=== PATIENT | male | born 1965 | race Caucasian/White ===

== ENCOUNTER 2020-07-11 12:39 | Outpatient (REF) | payer OTHER, SELFPAY ==
[2020-07-11 14:15] LABS: INTERNATIONAL NORM RATIO 2.6 (0.9-1.1); Prothrombin Time 30.7 SEC (10.8-13.0)
[2020-07-11 14:23] LABS: Alanine Aminotransferase 28 U/L (0-40); Albumin Level 4.3 g/dL (3.5-5.0); Alkaline Phosphatase 168 U/L (39-117); Anion Gap 16 (12-20); Aspartate Amino Transferase 38 U/L (5-37); Bilirubin Total 1.3 mg/dL (0.0-1.0); Blood Urea Nitrogen 65 mg/dL (9-16); Calcium 9.3 mg/dL (8.4-10.2); Carbon Dioxide 26 mmol/L (22-29); Chloride 94 mmol/L (96-108); Estimated Glomerular Filt Rate 38; Glucose Random 315 mg/dL (60-115); Potassium 3.9 mmol/l (3.3-5.1); Sodium 132 mmol/L (135-145); Total Protein 7.4 g/dL (6.5-8.0)
== END 2020-07-11 12:40 | disposition home or self-care (01) ==
LOC: HO.HMGCLDS 12:39
PROVIDERS: Absent Provider Internal Medicine Advanced Heart Failure and Transplant Cardiology; PCP Family Medicine; Visit Provider Internal Medicine
DX: Z95.811 Presence of heart assist device (principal); Z79.01 Long term (current) use of anticoagulants
CPT/HCPCS: 36415; 80053; 85610

== ENCOUNTER 2020-07-21 10:08 | Outpatient (REF) | payer OTHER, SELFPAY ==
[2020-07-21 11:20] LABS: INTERNATIONAL NORM RATIO 2.7 (0.9-1.1); Prothrombin Time 31.9 SEC (10.8-13.0)
[2020-07-21 11:42] LABS: Alanine Aminotransferase 28 U/L (0-40); Albumin Level 4.1 g/dL (3.5-5.0); Alkaline Phosphatase 116 U/L (39-117); Anion Gap 16 (12-20); Aspartate Amino Transferase 43 U/L (5-37); Bilirubin Total 1.3 mg/dL (0.0-1.0); Blood Urea Nitrogen 75 mg/dL (9-16); Calcium 9.1 mg/dL (8.4-10.2); Carbon Dioxide 27 mmol/L (22-29); Chloride 92 mmol/L (96-108); Estimated Glomerular Filt Rate 32; Glucose Random 229 mg/dL (60-115); Potassium 3.9 mmol/l (3.3-5.1); Sodium 131 mmol/L (135-145); Total Protein 7.2 g/dL (6.5-8.0)
== END 2020-07-21 10:09 | disposition home or self-care (01) ==
LOC: HO.HMGCLDS 10:08
PROVIDERS: Absent Provider Internal Medicine; PCP Family Medicine; Visit Provider Internal Medicine Advanced Heart Failure and Transplant Cardiology
DX: Z95.811 Presence of heart assist device (principal)
CPT/HCPCS: 36415; 80053; 85610

== ENCOUNTER 2020-08-12 07:36 | Outpatient (REF) | payer OTHER, SELFPAY ==
[2020-08-12 11:28] LABS: INTERNATIONAL NORM RATIO 2.7 (0.9-1.1); Prothrombin Time 32.9 SEC (10.8-13.0)
[2020-08-12 11:47] LABS: Alanine Aminotransferase 35 U/L (0-40); Albumin Level 4.1 g/dL (3.5-5.0); Alkaline Phosphatase 129 U/L (39-117); Anion Gap 15 (12-20); Aspartate Amino Transferase 47 U/L (5-37); Bilirubin Total 0.7 mg/dL (0.0-1.0); Blood Urea Nitrogen 76 mg/dL (9-16); Carbon Dioxide 28 mmol/L (22-29); Chloride 95 mmol/L (96-108); Estimated Glomerular Filt Rate 37; Glucose Random 239 mg/dL (60-115); Potassium 3.9 mmol/l (3.3-5.1); Sodium 134 mmol/L (135-145); Total Protein 7.3 g/dL (6.5-8.0)
[2020-08-13 17:51] LABS: NT-proBNP 3710 pg/mL
== END 2020-08-12 07:37 | disposition home or self-care (01) ==
LOC: HO.HMGCLR 07:36
PROVIDERS: Absent Provider Internal Medicine Advanced Heart Failure and Transplant Cardiology; PCP Family Medicine; Visit Provider Internal Medicine
DX: I50.9 Heart failure, unspecified (principal); Z95.811 Presence of heart assist device; Z79.01 Long term (current) use of anticoagulants
CPT/HCPCS: 36415; 80053; 83880; 85610

== ENCOUNTER 2020-08-18 12:25 | Outpatient (REF) | payer OTHER, SELFPAY ==
[2020-08-18 13:59] LABS: MANUAL DIFF FLAG NO
[2020-08-18 14:04] LABS: Basophils Absolute Auto 0.1 X10*3/uL (0.0-0.2); Basophils Percent Auto 0.8 % (0-2); Eosinophils Absolute Auto 0.4 X10*3/uL (0.0-0.4); Eosinophils Percent Auto 3.8 % (0-4); Hematocrit 37.2 % (42-52); Hemoglobin 12.2 g/dl (14.0-18.0); Imm Gran Abs Auto 0.09 X10*3/uL (0.00-0.03); Lymphocytes Absolute Auto 1.2 X10*3/uL (1.2-4.9); Lymphocytes Percent Auto 13.2 % (20-40); Mean Corpuscular HGB Conc 32.8 g/dl (31.0-36.0); Mean Corpuscular Hemoglobin 30.6 pg (27.0-33.0); Mean Corpuscular Volume 93.2 fL (80-98); Mean Platelet Volume 11.7 fL (9.4-12.4); Monocytes Absolute Auto 0.8 X10*3/uL (0.1-1.2); Monocytes Percent Auto 8.3 % (2-11); Neutrophils Absolute Auto 6.7 X10*3/uL (2.0-8.3); Neutrophils Percent Auto 72.9 % (45-73); Platelet Count 171 X10*3/uL (160-400); Red Blood Count 3.99 X10*6/uL (4.60-5.80); White Blood Count 9.2 X10*3/uL (4.8-10.8)
[2020-08-18 14:10] LABS: INTERNATIONAL NORM RATIO 3.2 (0.9-1.1); Prothrombin Time 38.9 SEC (10.8-13.0)
[2020-08-18 14:26] LABS: Alanine Aminotransferase 27 U/L (0-40); Alkaline Phosphatase 126 U/L (39-117); Anion Gap 15 (12-20); Aspartate Amino Transferase 34 U/L (5-37); Bilirubin Total 0.7 mg/dL (0.0-1.0); Blood Urea Nitrogen 63 mg/dL (9-16); C Reactive Protein 0.95 mg/dL (< or = 0.50); Calcium 8.7 mg/dL (8.4-10.2); Carbon Dioxide 25 mmol/L (22-29); Chloride 94 mmol/L (96-108); Estimated Glomerular Filt Rate 36; Glucose Random 224 mg/dL (60-115); Potassium 4.5 mmol/l (3.3-5.1); Sodium 129 mmol/L (135-145); Total Protein 6.9 g/dL (6.5-8.0); Uric Acid 6.4 mg/dL (3.4-7.0)
[2020-08-18 14:47] LABS: Erythrocyte Sedimentation Rate 10 MM/HR (0-15)
[2020-08-19 22:51] LABS: NT-proBNP 4880 pg/mL
== END 2020-08-18 12:26 | disposition home or self-care (01) ==
LOC: HO.HMGCLR 12:25
PROVIDERS: Internal Medicine Advanced Heart Failure and Transplant Cardiology; Absent Provider Student in an Organized Health Care Education/Training Program; PCP Family Medicine; Visit Provider Internal Medicine
DX: I50.9 Heart failure, unspecified (principal); Z95.811 Presence of heart assist device; Z79.01 Long term (current) use of anticoagulants; M10.00 Idiopathic gout, unspecified site
CPT/HCPCS: 36415; 80053; 83880; 84550; 85025; 85610; 85652; 86140

== ENCOUNTER → 2020-08-27 14:08 | Outpatient (BNVA) | payer OTHER, SELFPAY | PROVIDERS: PCP Family Medicine; Referring Provider Family Medicine; Visit Provider Internal Medicine Endocrinology, Diabetes & Metabolism | DX: E11.65 Type 2 diabetes mellitus with hyperglycemia (principal); E11.21 Type 2 diabetes mellitus with diabetic nephropathy; E11.42 Type 2 diabetes mellitus with diabetic polyneuropathy; E78.5 Hyperlipidemia, unspecified; I50.9 Heart failure, unspecified; E66.01 Morbid (severe) obesity due to excess calories; E04.2 Nontoxic multinodular goiter; Z87.891 Personal history of nicotine dependence | CPT/HCPCS: 82947; 99212 ==

== ENCOUNTER 2020-09-08 10:10 | Outpatient (REF) | payer OTHER, SELFPAY ==
[2020-09-08 11:35] LABS: INTERNATIONAL NORM RATIO 2.4 (0.9-1.1); Prothrombin Time 29.1 SEC (10.8-13.0)
[2020-09-08 11:57] LABS: Anion Gap 14 (12-20); B Type Natriuretic Peptide 956 pg/mL (<100); Blood Urea Nitrogen 61 mg/dL (9-16); Calcium 8.6 mg/dL (8.4-10.2); Carbon Dioxide 28 mmol/L (22-29); Chloride 100 mmol/L (96-108); Estimated Glomerular Filt Rate 44; Glucose Random 139 mg/dL (60-115); Potassium 4.5 mmol/l (3.3-5.1); Sodium 137 mmol/L (135-145)
== END 2020-09-08 10:11 | disposition home or self-care (01) ==
LOC: HO.HMGCLDS 10:10
PROVIDERS: PCP Family Medicine; Visit Provider Internal Medicine
DX: I50.22 Chronic systolic (congestive) heart failure (principal); Z95.811 Presence of heart assist device; Z79.01 Long term (current) use of anticoagulants
CPT/HCPCS: 36415; 80048; 83880; 85610

== ENCOUNTER 2020-09-15 11:31 | Outpatient (REF) | payer OTHER, SELFPAY ==
[2020-09-15 15:01] LABS: INTERNATIONAL NORM RATIO 1.9 (0.9-1.1); Prothrombin Time 22.9 SEC (10.8-13.0)
[2020-09-15 16:48] LABS: Alanine Aminotransferase 26 U/L (0-40); Albumin Level 4.3 g/dL (3.5-5.0); Alkaline Phosphatase 132 U/L (39-117); Anion Gap 17 (12-20); Aspartate Amino Transferase 42 U/L (5-37); Bilirubin Total 0.9 mg/dL (0.0-1.0); Blood Urea Nitrogen 80 mg/dL (9-16); Calcium 9.4 mg/dL (8.4-10.2); Carbon Dioxide 27 mmol/L (22-29); Chloride 91 mmol/L (96-108); Estimated Glomerular Filt Rate 35; Glucose Random 207 mg/dL (60-115); Sodium 131 mmol/L (135-145); Total Protein 7.6 g/dL (6.5-8.0)
[2020-09-17 22:52] LABS: TS Negative Control Passed; TS Panel A 0; TS Panel B 0; TS Positive Control Passed; TSpotTB Negative (SeeBelow)
== END 2020-09-15 11:32 | disposition home or self-care (01) ==
LOC: HO.HMGCLR 11:31
PROVIDERS: Internal Medicine; PCP Family Medicine; Visit Provider Physician Assistant Medical
DX: Z95.811 Presence of heart assist device (principal); Z79.01 Long term (current) use of anticoagulants; Z51.81 Encounter for therapeutic drug level monitoring
CPT/HCPCS: 36415; 80053; 85610; 86481

== ENCOUNTER 2020-09-22 13:08 | Outpatient (REF) | payer OTHER, SELFPAY ==
--- NOTE | 2020-09-22 13:16 | XR_ITS ---
EXAMINATION: XR PELVIS CLINICAL INFORMATION: M79.18 - Myalgia, other site COMPARISON: None TECHNIQUE: AP view pelvis and hips in 2 views. FINDINGS: There is no fracture, dislocation, destructive process. The SI joints and pubis show no diastases. There are degenerative changes lower lumbar spine with multilevel vertebral spurring and probable disc narrowing lumbosacral junction. The hips are unremarkable. XR/XR pelvis 1-2V IMPRESSION: 1. No fracture or destructive process. 2. Degenerative changes lumbosacral spine.
[2020-09-22 14:10] LABS: INTERNATIONAL NORM RATIO 2.5 (0.9-1.1); Prothrombin Time 30.5 SEC (10.8-13.0)
[2020-09-22 14:42] LABS: B Type Natriuretic Peptide 741 pg/mL (<100)
[2020-09-22 14:44] LABS: Anion Gap 16 (12-20); Blood Urea Nitrogen 78 mg/dL (9-16); Calcium 9.1 mg/dL (8.4-10.2); Carbon Dioxide 22 mmol/L (22-29); Chloride 97 mmol/L (96-108); Estimated Glomerular Filt Rate 37; Glucose Random 230 mg/dL (60-115); Potassium 4.7 mmol/l (3.3-5.1); Sodium 130 mmol/L (135-145)
== END 2020-09-22 13:09 | disposition home or self-care (01) ==
LOC: HO.HMGCLR 13:08
PROVIDERS: PCP Family Medicine; Visit Provider Internal Medicine
DX: Z00.00 Encounter for general adult medical examination without abnormal findings (principal); Z95.811 Presence of heart assist device; Z79.01 Long term (current) use of anticoagulants; M79.18 Myalgia, other site; I50.9 Heart failure, unspecified; E87.70 Fluid overload, unspecified; N17.9 Acute kidney failure, unspecified
CPT/HCPCS: 36415; 72170; 80048; 83880; 85610

== ENCOUNTER 2020-10-03 13:57 | Outpatient (REF) | payer OTHER, SELFPAY ==
[2020-10-03 16:37] LABS: Prothrombin Time 36.4 SEC (10.8-13.0)
== END 2020-10-03 13:58 | disposition home or self-care (01) ==
LOC: HO.HMGCLR 13:57
PROVIDERS: PCP Family Medicine; Visit Provider Internal Medicine
DX: Z95.811 Presence of heart assist device (principal); Z79.01 Long term (current) use of anticoagulants
CPT/HCPCS: 36415; 85610

== ENCOUNTER 2020-10-13 14:00 | Outpatient (RCR) | payer OTHER, SELFPAY ==
--- NOTE | 2020-10-03 14:00 | MHC.PT.EP ---
[facility] [place] Office [place] Office [place] Office [address] [phone] F: [phone] F: [phone] F: [phone] F: [phone] Physical Therapy Plan of Care Date of Evaluation: 10/03/20 Date of Surgery: none Diagnosis: Left buttock myalgia post fall Assessment: Patient is a 55 year old R handed male who presents with s/s consistent with L buttock pain from a fall. Prior to fall, he was ambulating with no AD. However, now he ambulates with a walk. He has a history of cardiac procedures and has DM as well. 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 Current impairments include pain, ROM, strength, safety, independence, activity tolerance and functional mobility. Functional limitations include decreased ability to walk, stand, transfer, negotiate stairs, and perform weight bearing activities.. Patient is motivated with good rehab potential. Skilled PT will address impairments and functional limitations in order to achieve goals. Frequency and Duration: The patient will be seen 2x/week for 5 weeks Short Term Goals: I with HEP - 2 weeks TTP absent - 3 weeks Safe gait with no AD - 3 weeks Senior Living Goals: LEFS 40/80 - 4 weeks Back to PLOF - pain free - 5 weeks Treatment Plan: Modalities to reduce pain, spasms and effusion. Manual therapy to restore motion and function. Therapeutic exercise to improve strength and flexibility. Neuromuscular re-education for posture and balance. Therapeutic activities to return to functional activities of daily living. Electronically signed by: Jose Eduardo Tinoco, CHUCHO Please sign and return to therapist. Thank you for your referral.
--- NOTE | 2020-11-17 08:21 | MHC.PT.DC ---
[facility] [place] Office [place] Office [place] Office [address] [phone] F: [phone] F: [phone] F: [phone] F: [phone] Physical Therapy Discharge Report Diagnosis: Left buttock myalgia post fall Date of Surgery: none Date of Evaluation: 10/03/20 Date of Discharge: 11/17/20 Treatments to Date: 2 Cancellations to Date: 2 No Shows to Date: Discharge Status: Independent with HEP Discharge Summary: Pt was progressing well but had to stop PT at this time due to other health concerns. Electronically signed by: Jose Eduardo Tinoco, PT Please sign and return to therapist. Thank you for your referral.
== END 2020-11-17 08:22 | disposition home or self-care (01) ==
LOC: HO.PTCHIC 14:00
PROVIDERS: PCP Family Medicine; Visit Provider Family Medicine
DX: M79.18 Myalgia, other site (principal); T14.8XXD Other injury of unspecified body region, subsequent encounter
CPT/HCPCS: 97110; 97140; 97162

== ENCOUNTER 2020-10-17 13:21 | Outpatient (REF) | payer MEDICARE, SELFPAY ==
[2020-10-17 16:42] LABS: MANUAL DIFF FLAG NO
[2020-10-17 16:51] LABS: Basophils Absolute Auto 0.1 X10*3/uL (0.0-0.2); Basophils Percent Auto 0.8 % (0-2); Eosinophils Absolute Auto 0.3 X10*3/uL (0.0-0.4); Eosinophils Percent Auto 3.1 % (0-4); Hematocrit 38.4 % (42-52); Hemoglobin 12.5 g/dl (14.0-18.0); Imm Gran Abs Auto 0.06 X10*3/uL (0.00-0.03); Imm Gran Pct Auto 0.7 % (0.0-0.4); Lymphocytes Absolute Auto 1.1 X10*3/uL (1.2-4.9); Lymphocytes Percent Auto 12.2 % (20-40); Mean Corpuscular HGB Conc 32.6 g/dl (31.0-36.0); Mean Corpuscular Hemoglobin 29.6 pg (27.0-33.0); Mean Corpuscular Volume 90.8 fL (80-98); Mean Platelet Volume 12.1 fL (9.4-12.4); Monocytes Absolute Auto 0.9 X10*3/uL (0.1-1.2); Monocytes Percent Auto 10.3 % (2-11); Neutrophils Absolute Auto 6.3 X10*3/uL (2.0-8.3); Neutrophils Percent Auto 72.9 % (45-73); Platelet Count 189 X10*3/uL (160-400); Red Blood Count 4.23 X10*6/uL (4.60-5.80); Red Cell Distribution Width 17.4 % (11.0-16.0); White Blood Count 8.7 X10*3/uL (4.8-10.8)
[2020-10-17 16:56] LABS: INTERNATIONAL NORM RATIO 2.1 (0.9-1.1); Prothrombin Time 25.7 SEC (10.8-13.0)
[2020-10-17 17:09] LABS: C Reactive Protein 0.97 mg/dL (< or = 0.50); Uric Acid 5.9 mg/dL (3.4-7.0)
[2020-10-17 17:13] LABS: B Type Natriuretic Peptide 641 pg/mL (<100)
[2020-10-17 18:00] LABS: Alanine Aminotransferase 32 U/L (0-40); Albumin Level 4.4 g/dL (3.5-5.0); Alkaline Phosphatase 160 U/L (39-117); Anion Gap 19 (12-20); Aspartate Amino Transferase 50 U/L (5-37); Bilirubin Total 1.2 mg/dL (0.0-1.0); Blood Urea Nitrogen 91 mg/dL (9-16); Calcium 9.3 mg/dL (8.4-10.2); Carbon Dioxide 26 mmol/L (22-29); Chloride 88 mmol/L (96-108); Estimated Glomerular Filt Rate 33; Glucose Random 177 mg/dL (60-115); Potassium 3.9 mmol/l (3.3-5.1); Sodium 129 mmol/L (135-145); Total Protein 7.7 g/dL (6.5-8.0)
[2020-10-17 18:12] LABS: Erythrocyte Sedimentation Rate 7 MM/HR (0-15)
== END 2020-10-17 13:22 | disposition home or self-care (01) ==
LOC: HO.HMGCLR 13:21
PROVIDERS: Internal Medicine Cardiovascular Disease; PCP Family Medicine; Referring Provider Student in an Organized Health Care Education/Training Program; Visit Provider Internal Medicine
DX: L40.50 Arthropathic psoriasis, unspecified (principal); M1A.09X0 Idiopathic chronic gout, multiple sites, without tophus (tophi); E11.21 Type 2 diabetes mellitus with diabetic nephropathy; E11.42 Type 2 diabetes mellitus with diabetic polyneuropathy; Z79.899 Other long term (current) drug therapy; Z79.01 Long term (current) use of anticoagulants; Z79.4 Long term (current) use of insulin
CPT/HCPCS: 36415; 80053; 83880; 84550; 85025; 85610; 85652; 86140; 99212

== ENCOUNTER 2020-11-14 09:50 | Outpatient (REF) | payer OTHER, SELFPAY ==
[2020-11-14 13:44] LABS: MANUAL DIFF FLAG NO
[2020-11-14 13:47] LABS: Basophils Absolute Auto 0.1 X10*3/uL (0.0-0.2); Basophils Percent Auto 0.7 % (0-2); Eosinophils Absolute Auto 0.3 X10*3/uL (0.0-0.4); Eosinophils Percent Auto 3.1 % (0-4); Hematocrit 40.6 % (42-52); Hemoglobin 12.9 g/dl (14.0-18.0); Imm Gran Abs Auto 0.08 X10*3/uL (0.00-0.03); Lymphocytes Absolute Auto 1.1 X10*3/uL (1.2-4.9); Mean Corpuscular HGB Conc 31.8 g/dl (31.0-36.0); Mean Corpuscular Hemoglobin 28.8 pg (27.0-33.0); Mean Corpuscular Volume 90.6 fL (80-98); Mean Platelet Volume 10.7 fL (9.4-12.4); Monocytes Absolute Auto 0.9 X10*3/uL (0.1-1.2); Monocytes Percent Auto 10.7 % (2-11); Neutrophils Absolute Auto 5.7 X10*3/uL (2.0-8.3); Neutrophils Percent Auto 70.5 % (45-73); Platelet Count 172 X10*3/uL (160-400); Red Blood Count 4.48 X10*6/uL (4.60-5.80); Red Cell Distribution Width 17.6 % (11.0-16.0); White Blood Count 8.1 X10*3/uL (4.8-10.8)
[2020-11-14 13:52] LABS: INTERNATIONAL NORM RATIO 2.3 (0.9-1.1); Prothrombin Time 27.7 SEC (10.8-13.0)
[2020-11-14 14:15] LABS: B Type Natriuretic Peptide 767 pg/mL (<100)
[2020-11-14 14:26] LABS: Alanine Aminotransferase 30 U/L (0-40); Albumin Level 4.3 g/dL (3.5-5.0); Alkaline Phosphatase 130 U/L (39-117); Anion Gap 18 (12-20); Aspartate Amino Transferase 47 U/L (5-37); Bilirubin Total 0.8 mg/dL (0.0-1.0); Blood Urea Nitrogen 83 mg/dL (9-16); C Reactive Protein 0.48 mg/dL (< or = 0.50); Calcium 9.5 mg/dL (8.4-10.2); Carbon Dioxide 26 mmol/L (22-29); Chloride 89 mmol/L (96-108); Estimated Glomerular Filt Rate 28; Glucose Random 162 mg/dL (60-115); Potassium 4.8 mmol/L (3.3-5.1); Sodium 128 mmol/L (135-145); Total Protein 7.4 g/dL (6.5-8.0); Uric Acid 5.8 mg/dL (3.4-7.0)
[2020-11-14 14:34] LABS: Erythrocyte Sedimentation Rate 5 MM/HR (0-15)
== END 2020-11-14 09:51 | disposition home or self-care (01) ==
LOC: HO.HMGCLR 09:50
PROVIDERS: Student in an Organized Health Care Education/Training Program; PCP Family Medicine; Referring Provider Internal Medicine Cardiovascular Disease; Visit Provider Internal Medicine
DX: M1A.09X0 Idiopathic chronic gout, multiple sites, without tophus (tophi) (principal); L40.50 Arthropathic psoriasis, unspecified; I50.22 Chronic systolic (congestive) heart failure; Z95.811 Presence of heart assist device
CPT/HCPCS: 36415; 80053; 83880; 84550; 85025; 85610; 85652; 86140

== ENCOUNTER 2020-12-03 07:51 | Outpatient (REF) | payer OTHER, SELFPAY ==
[2020-12-03 11:08] LABS: MANUAL DIFF FLAG NO
[2020-12-03 11:24] LABS: Basophils Absolute Auto 0.1 X10*3/uL (0.0-0.2); Basophils Percent Auto 0.8 % (0-2); Eosinophils Absolute Auto 0.4 X10*3/uL (0.0-0.4); Eosinophils Percent Auto 4.7 % (0-4); Hematocrit 43.7 % (42-52); Hemoglobin 14.2 g/dl (14.0-18.0); INTERNATIONAL NORM RATIO 2.8 (0.9-1.1); Imm Gran Abs Auto 0.05 X10*3/uL (0.00-0.03); Imm Gran Pct Auto 0.6 % (0.0-0.4); Lymphocytes Absolute Auto 1.3 X10*3/uL (1.2-4.9); Lymphocytes Percent Auto 15.3 % (20-40); Mean Corpuscular HGB Conc 32.5 g/dl (31.0-36.0); Mean Corpuscular Volume 89.4 fL (80-98); Mean Platelet Volume 11.5 fL (9.4-12.4); Monocytes Absolute Auto 1.2 X10*3/uL (0.1-1.2); Neutrophils Absolute Auto 5.4 X10*3/uL (2.0-8.3); Neutrophils Percent Auto 64.6 % (45-73); Platelet Count 214 X10*3/uL (160-400); Prothrombin Time 33.4 SEC (10.8-13.0); Red Blood Count 4.89 X10*6/uL (4.60-5.80); Red Cell Distribution Width 17.2 % (11.0-16.0); White Blood Count 8.4 X10*3/uL (4.8-10.8)
[2020-12-03 11:40] LABS: B Type Natriuretic Peptide 655 pg/mL (<100)
[2020-12-03 12:09] LABS: Alanine Aminotransferase 30 U/L (0-40); Albumin Level 4.5 g/dL (3.5-5.0); Alkaline Phosphatase 128 U/L (39-117); Anion Gap 17 (12-20); Aspartate Amino Transferase 52 U/L (5-37); Blood Urea Nitrogen 87 mg/dL (9-16); Calcium 9.3 mg/dL (8.4-10.2); Carbon Dioxide 25 mmol/L (22-29); Chloride 92 mmol/L (96-108); Estimated Glomerular Filt Rate 29; Glucose Random 107 mg/dL (60-115); Potassium 3.9 mmol/L (3.3-5.1); Sodium 130 mmol/L (135-145); Total Protein 7.8 g/dL (6.5-8.0)
== END 2020-12-03 07:52 | disposition home or self-care (01) ==
LOC: HO.HMGCLR 07:51
PROVIDERS: Internal Medicine; PCP Family Medicine; Visit Provider Internal Medicine Cardiovascular Disease
DX: Z95.811 Presence of heart assist device (principal); Z79.01 Long term (current) use of anticoagulants; Z51.81 Encounter for therapeutic drug level monitoring
CPT/HCPCS: 36415; 80053; 83880; 85025; 85610

== ENCOUNTER 2020-12-15 12:21 | Outpatient (REF) | payer OTHER, SELFPAY ==
[2020-12-15 14:34] LABS: MANUAL DIFF FLAG NO
[2020-12-15 14:48] LABS: Basophils Absolute Auto 0.1 X10*3/uL (0.0-0.2); Basophils Percent Auto 0.6 % (0-2); Eosinophils Absolute Auto 0.2 X10*3/uL (0.0-0.4); Eosinophils Percent Auto 2.4 % (0-4); Hematocrit 36.2 % (42-52); Hemoglobin 11.9 g/dl (14.0-18.0); Imm Gran Abs Auto 0.05 X10*3/uL (0.00-0.03); Imm Gran Pct Auto 0.5 % (0.0-0.4); Lymphocytes Absolute Auto 0.9 X10*3/uL (1.2-4.9); Lymphocytes Percent Auto 9.5 % (20-40); Mean Corpuscular HGB Conc 32.9 g/dl (31.0-36.0); Mean Corpuscular Hemoglobin 29.7 pg (27.0-33.0); Mean Corpuscular Volume 90.3 fL (80-98); Mean Platelet Volume 11.9 fL (9.4-12.4); Monocytes Absolute Auto 0.9 X10*3/uL (0.1-1.2); Monocytes Percent Auto 9.2 % (2-11); Neutrophils Absolute Auto 7.7 X10*3/uL (2.0-8.3); Neutrophils Percent Auto 77.8 % (45-73); Platelet Count 172 X10*3/uL (160-400); Red Blood Count 4.01 X10*6/uL (4.60-5.80); Red Cell Distribution Width 17.7 % (11.0-16.0); White Blood Count 9.9 X10*3/uL (4.8-10.8)
[2020-12-15 14:54] LABS: INTERNATIONAL NORM RATIO 2.9 (0.9-1.1); Prothrombin Time 34.6 SEC (10.8-13.0)
[2020-12-15 15:40] LABS: Alanine Aminotransferase 20 U/L (0-40); Albumin Level 3.9 g/dL (3.5-5.0); Alkaline Phosphatase 115 U/L (39-117); Anion Gap 20 (12-20); Aspartate Amino Transferase 39 U/L (5-37); Bilirubin Total 0.8 mg/dL (0.0-1.0); Blood Urea Nitrogen 122 mg/dL (9-16); Calcium 8.7 mg/dL (8.4-10.2); Carbon Dioxide 28 mmol/L (22-29); Chloride 89 mmol/L (96-108); Estimated Glomerular Filt Rate 22; Glucose Random 190 mg/dL (60-115); Potassium 4.1 mmol/L (3.3-5.1); Sodium 133 mmol/L (135-145); Total Protein 6.9 g/dL (6.5-8.0)
[2020-12-16 13:32] LABS: NT-proBNP 5450 pg/mL
== END 2020-12-15 12:22 | disposition home or self-care (01) ==
LOC: HO.HMGCLR 12:21
PROVIDERS: Family Medicine; Visit Provider Internal Medicine Cardiovascular Disease
DX: I50.9 Heart failure, unspecified (principal); Z95.811 Presence of heart assist device
CPT/HCPCS: 36415; 80053; 83880; 85025; 85610

== ENCOUNTER 2020-12-30 13:19 | Outpatient (REF) | payer OTHER, SELFPAY ==
[2020-12-30 14:43] LABS: INTERNATIONAL NORM RATIO 2.5 (0.9-1.1); Prothrombin Time 30.4 SEC (10.8-13.0)
== END 2020-12-30 13:20 | disposition home or self-care (01) ==
LOC: HO.HMGCLR 13:19
PROVIDERS: Visit Provider Internal Medicine
DX: Z95.811 Presence of heart assist device (principal); Z79.01 Long term (current) use of anticoagulants
CPT/HCPCS: 36415; 85610

== ENCOUNTER 2021-01-01 12:27 | Outpatient (REF) | payer OTHER, SELFPAY ==
[2021-01-01 14:13] LABS: INTERNATIONAL NORM RATIO 2.3 (0.9-1.1); Prothrombin Time 27.6 SEC (10.8-13.0)
== END 2021-01-01 12:28 | disposition home or self-care (01) ==
LOC: HO.HMGCLR 12:27
PROVIDERS: Visit Provider Internal Medicine
DX: Z95.811 Presence of heart assist device (principal); Z79.01 Long term (current) use of anticoagulants
CPT/HCPCS: 36415; 85610

== ENCOUNTER 2021-01-12 08:23 | Outpatient (REF) | payer OTHER, SELFPAY ==
[2021-01-12 11:25] LABS: MANUAL DIFF FLAG NO
[2021-01-12 11:39] LABS: Basophils Percent Auto 0.4 % (0-2); Eosinophils Absolute Auto 0.2 X10*3/uL (0.0-0.4); Eosinophils Percent Auto 2.3 % (0-4); Hematocrit 34.8 % (42-52); Hemoglobin 11.3 g/dl (14.0-18.0); Imm Gran Abs Auto 0.02 X10*3/uL (0.00-0.03); Imm Gran Pct Auto 0.3 % (0.0-0.4); Lymphocytes Absolute Auto 1.4 X10*3/uL (1.2-4.9); Lymphocytes Percent Auto 18.1 % (20-40); Mean Corpuscular HGB Conc 32.5 g/dl (31.0-36.0); Mean Corpuscular Hemoglobin 28.5 pg (27.0-33.0); Mean Corpuscular Volume 87.9 fL (80-98); Mean Platelet Volume 11.6 fL (9.4-12.4); Monocytes Absolute Auto 0.8 X10*3/uL (0.1-1.2); Monocytes Percent Auto 10.2 % (2-11); Neutrophils Absolute Auto 5.3 X10*3/uL (2.0-8.3); Neutrophils Percent Auto 68.7 % (45-73); Platelet Count 223 X10*3/uL (160-400); Red Blood Count 3.96 X10*6/uL (4.60-5.80); White Blood Count 7.7 X10*3/uL (4.8-10.8)
[2021-01-12 11:42] LABS: INTERNATIONAL NORM RATIO 2.5 (0.9-1.1); Prothrombin Time 29.8 SEC (10.8-13.0)
[2021-01-12 13:16] LABS: Anion Gap 21 (12-20); Blood Urea Nitrogen 102 mg/dL (9-16); Calcium 9.3 mg/dL (8.4-10.2); Carbon Dioxide 27 mmol/L (22-29); Chloride 91 mmol/L (96-108); Estimated Glomerular Filt Rate 28; Glucose Random 88 mg/dL (60-115); Potassium 2.9 mmol/L (3.3-5.1); Sodium 136 mmol/L (135-145)
== END 2021-01-12 08:24 | disposition home or self-care (01) ==
LOC: HO.HMGCLR 08:23
PROVIDERS: PCP Family Medicine; Referring Provider Internal Medicine; Visit Provider Internal Medicine Cardiovascular Disease
DX: Z95.811 Presence of heart assist device (principal); Z79.01 Long term (current) use of anticoagulants
CPT/HCPCS: 36415; 80048; 85025; 85610

== ENCOUNTER 2021-01-15 09:51 | Outpatient (REF) | payer OTHER, SELFPAY ==
[2021-01-15 11:58] LABS: INTERNATIONAL NORM RATIO 2.4 (0.9-1.1); Prothrombin Time 28.8 SEC (10.8-13.0)
[2021-01-15 13:16] LABS: Anion Gap 19 (12-20); Blood Urea Nitrogen 90 mg/dL (9-16); Calcium 9.1 mg/dL (8.4-10.2); Carbon Dioxide 26 mmol/L (22-29); Chloride 95 mmol/L (96-108); Estimated Glomerular Filt Rate 37; Glucose Random 96 mg/dL (60-115); Potassium 3.8 mmol/L (3.3-5.1); Sodium 136 mmol/L (135-145)
== END 2021-01-15 09:52 | disposition home or self-care (01) ==
LOC: HO.HMGCLR 09:51
PROVIDERS: PCP Family Medicine; Referring Provider Internal Medicine; Visit Provider Internal Medicine Cardiovascular Disease
DX: Z95.811 Presence of heart assist device (principal); Z79.01 Long term (current) use of anticoagulants
CPT/HCPCS: 36415; 80048; 85610

== ENCOUNTER 2021-01-26 11:57 | Outpatient (REF) | payer OTHER, SELFPAY ==
[2021-01-26 14:17] LABS: MANUAL DIFF FLAG NO
[2021-01-26 14:22] LABS: Basophils Percent Auto 0.4 % (0-2); Eosinophils Absolute Auto 0.2 X10*3/uL (0.0-0.4); Hematocrit 34.2 % (42-52); Hemoglobin 10.9 g/dl (14.0-18.0); Imm Gran Abs Auto 0.02 X10*3/uL (0.00-0.03); Imm Gran Pct Auto 0.3 % (0.0-0.4); Lymphocytes Percent Auto 12.9 % (20-40); Mean Corpuscular HGB Conc 31.9 g/dl (31.0-36.0); Mean Corpuscular Hemoglobin 27.9 pg (27.0-33.0); Mean Corpuscular Volume 87.7 fL (80-98); Mean Platelet Volume 12.7 fL (9.4-12.4); Monocytes Absolute Auto 0.9 X10*3/uL (0.1-1.2); Monocytes Percent Auto 11.3 % (2-11); Neutrophils Absolute Auto 5.5 X10*3/uL (2.0-8.3); Neutrophils Percent Auto 72.1 % (45-73); Platelet Count 166 X10*3/uL (160-400); Red Cell Distribution Width 17.1 % (11.0-16.0); White Blood Count 7.6 X10*3/uL (4.8-10.8)
[2021-01-26 14:27] LABS: INTERNATIONAL NORM RATIO 2.8 (0.9-1.1); Prothrombin Time 33.2 SEC (10.8-13.0)
== END 2021-01-26 11:58 | disposition home or self-care (01) ==
LOC: HO.HMGCLR 11:57
PROVIDERS: Internal Medicine Cardiovascular Disease; PCP Family Medicine; Visit Provider Internal Medicine
DX: Z95.811 Presence of heart assist device (principal)
CPT/HCPCS: 36415; 85025; 85610

== ENCOUNTER 2021-01-29 08:22 | Outpatient (REF) | payer OTHER, SELFPAY ==
[2021-01-29 11:45] LABS: Hematocrit 37.8 % (42-52); Hemoglobin 11.8 g/dl (14.0-18.0); Mean Corpuscular HGB Conc 31.2 g/dl (31.0-36.0); Mean Corpuscular Hemoglobin 27.5 pg (27.0-33.0); Mean Corpuscular Volume 88.1 fL (80-98); Mean Platelet Volume 12.7 fL (9.4-12.4); Platelet Count 178 X10*3/uL (160-400); Red Blood Count 4.29 X10*6/uL (4.60-5.80); Red Cell Distribution Width 17.2 % (11.0-16.0); White Blood Count 7.7 X10*3/uL (4.8-10.8)
[2021-01-29 12:03] LABS: Anion Gap 22 (12-20); Blood Urea Nitrogen 105 mg/dL (9-16); Calcium 9.9 mg/dL (8.4-10.2); Carbon Dioxide 30 mmol/L (22-29); Chloride 86 mmol/L (96-108); Estimated Glomerular Filt Rate 32; Glucose Fasting 132 mg/dL (60-99); Sodium 135 mmol/L (135-145)
== END 2021-01-29 08:23 | disposition home or self-care (01) ==
LOC: HO.HMGCLDS 08:22
PROVIDERS: PCP Family Medicine; Visit Provider Internal Medicine Cardiovascular Disease
DX: I50.9 Heart failure, unspecified (principal); Z95.811 Presence of heart assist device
CPT/HCPCS: 36415; 80048; 85027

== ENCOUNTER 2021-02-09 09:42 | Outpatient (REF) | payer OTHER, SELFPAY ==
[2021-02-09 11:43] LABS: Hematocrit 34.8 % (42-52); Hemoglobin 10.8 g/dl (14.0-18.0); Mean Corpuscular Hemoglobin 27.2 pg (27.0-33.0); Mean Corpuscular Volume 87.7 fL (80-98); Mean Platelet Volume 11.9 fL (9.4-12.4); Platelet Count 181 X10*3/uL (160-400); Red Blood Count 3.97 X10*6/uL (4.60-5.80); Red Cell Distribution Width 16.8 % (11.0-16.0); White Blood Count 6.8 X10*3/uL (4.8-10.8)
[2021-02-09 11:46] LABS: INTERNATIONAL NORM RATIO 3.1 (0.9-1.1)
[2021-02-09 12:02] LABS: B Type Natriuretic Peptide 501 pg/mL (<100)
[2021-02-09 12:18] LABS: Anion Gap 16 (12-20); Calcium 8.8 mg/dL (8.4-10.2); Carbon Dioxide 25 mmol/L (22-29); Chloride 100 mmol/L (96-108); Estimated Glomerular Filt Rate 35; Glucose Random 143 mg/dL (60-115); Potassium 4.2 mmol/L (3.3-5.1); Sodium 137 mmol/L (135-145)
[2021-02-09 13:08] LABS: Blood Urea Nitrogen 98 mg/dL (9-16)
== END 2021-02-09 09:43 | disposition home or self-care (01) ==
LOC: HO.HMGCLR 09:42
PROVIDERS: PCP Family Medicine; Referring Provider Internal Medicine Cardiovascular Disease; Visit Provider Internal Medicine
DX: I50.9 Heart failure, unspecified (principal); Z95.811 Presence of heart assist device; Z79.01 Long term (current) use of anticoagulants
CPT/HCPCS: 36415; 80048; 83880; 85027; 85610

== ENCOUNTER 2021-03-23 10:53 | Outpatient (REF) | payer OTHER, SELFPAY ==
[2021-03-23 13:57] LABS: Hematocrit 28.1 % (42-52); INTERNATIONAL NORM RATIO 1.8 (0.9-1.1); Mean Corpuscular HGB Conc 30.2 g/dl (31.0-36.0); Mean Corpuscular Hemoglobin 24.2 pg (27.0-33.0); Mean Corpuscular Volume 80.1 fL (80-98); Mean Platelet Volume 11.3 fL (9.4-12.4); Platelet Count 163 X10*3/uL (160-400); Prothrombin Time 21.3 SEC (10.8-13.0); Red Blood Count 3.51 X10*6/uL (4.60-5.80); Red Cell Distribution Width 20.1 % (11.0-16.0)
[2021-03-23 14:03] LABS: Hemoglobin 8.5 g/dl (14.0-18.0)
[2021-03-23 14:20] LABS: Magnesium 1.9 mg/dL (1.6-2.6)
[2021-03-23 14:21] LABS: Anion Gap 17 (12-20); Blood Urea Nitrogen 47 mg/dL (9-16); Calcium 8.6 mg/dL (8.4-10.2); Carbon Dioxide 20 mmol/L (22-29); Chloride 102 mmol/L (96-108); Estimated Glomerular Filt Rate 31; Glucose Random 128 mg/dL (60-115); Potassium 4.2 mmol/L (3.3-5.1); Sodium 135 mmol/L (135-145)
== END 2021-03-23 10:54 | disposition home or self-care (01) ==
LOC: HO.HMGCLR 10:53
PROVIDERS: Absent Provider Internal Medicine; PCP Family Medicine; Visit Provider Internal Medicine Advanced Heart Failure and Transplant Cardiology
DX: Z95.811 Presence of heart assist device (principal); Z79.01 Long term (current) use of anticoagulants
CPT/HCPCS: 36415; 80048; 83735; 85027; 85610

== ENCOUNTER 2021-03-26 12:28 | Outpatient (REF) | payer OTHER, SELFPAY ==
[2021-03-26 14:08] LABS: Prothrombin Time 23.9 SEC (10.8-13.0)
== END 2021-03-26 12:29 | disposition home or self-care (01) ==
LOC: HO.HMGCLR 12:28
PROVIDERS: Visit Provider Internal Medicine
DX: Z95.811 Presence of heart assist device (principal)
CPT/HCPCS: 36415; 85610

== ENCOUNTER 2021-04-01 10:30 | Outpatient (REF) | payer OTHER, SELFPAY ==
[2021-04-01 11:36] LABS: Prothrombin Time 22.6 SEC (9.9-13.0)
[2021-04-01 12:01] LABS: Hematocrit 29.2 % (42-52); Hemoglobin 8.8 g/dl (14.0-18.0); Imm Gran Abs Auto 0.02 X10*3/uL (0.00-0.03); Imm Gran Pct Auto 0.3 % (0.0-0.4); Mean Corpuscular HGB Conc 30.1 g/dl (31.0-36.0); Mean Corpuscular Hemoglobin 23.6 pg (27.0-33.0); Mean Corpuscular Volume 78.3 fL (80-98); Red Blood Count 3.73 X10*6/uL (4.60-5.80)
[2021-04-01 12:03] LABS: Basophils Absolute Auto 0.1 X10*3/uL (0.0-0.2); Basophils Percent Auto 0.8 % (0-2); Eosinophils Absolute Auto 0.3 X10*3/uL (0.0-0.4); Lymphocytes Percent Auto 16.6 % (20-40); Monocytes Absolute Auto 0.9 X10*3/uL (0.1-1.2); Monocytes Percent Auto 14.9 % (2-11); Neutrophils Absolute Auto 3.7 X10*3/uL (2.0-8.3); Neutrophils Percent Auto 62.4 % (45-73); Platelet Count 215 X10*3/uL (160-400); Red Cell Distribution Width 21.7 % (11.0-16.0)
[2021-04-01 12:09] LABS: MANUAL DIFF FLAG NO
[2021-04-01 12:15] LABS: B Type Natriuretic Peptide 1202 pg/mL (<100)
[2021-04-01 12:25] LABS: Alanine Aminotransferase 30 U/L (0-40); Albumin Level 3.8 g/dL (3.5-5.0); Alkaline Phosphatase 121 U/L (39-117); Anion Gap 16 (12-20); Aspartate Amino Transferase 50 U/L (5-37); Bilirubin Total 0.7 mg/dL (0.0-1.0); Blood Urea Nitrogen 79 mg/dL (9-16); Calcium 8.8 mg/dL (8.4-10.2); Carbon Dioxide 21 mmol/L (22-29); Chloride 102 mmol/L (96-108); Estimated Glomerular Filt Rate 29; Glucose Random 70 mg/dL (60-115); Potassium 4.4 mmol/L (3.3-5.1); Sodium 135 mmol/L (135-145); Total Protein 6.7 g/dL (6.5-8.0)
[2021-04-01 12:44] LABS: Lactate Dehydrogenase 228 U/L (118-273)
== END 2021-04-01 10:31 | disposition home or self-care (01) ==
LOC: HO.HMGCLR 10:30
PROVIDERS: Absent Provider Internal Medicine Cardiovascular Disease; PCP Family Medicine; Visit Provider Internal Medicine
DX: Z95.811 Presence of heart assist device (principal); Z79.01 Long term (current) use of anticoagulants; Z51.81 Encounter for therapeutic drug level monitoring
CPT/HCPCS: 36415; 80053; 83615; 83880; 85025; 85610

== ENCOUNTER 2021-04-27 11:13 | Outpatient (REF) | payer OTHER, SELFPAY ==
[2021-04-27 14:12] LABS: INTERNATIONAL NORM RATIO 1.8 (0.9-1.1)
[2021-04-27 15:37] LABS: Anion Gap 21 (12-20); Blood Urea Nitrogen 90 mg/dL (9-16); Calcium 9.2 mg/dL (8.4-10.2); Carbon Dioxide 22 mmol/L (22-29); Chloride 95 mmol/L (96-108); Estimated Glomerular Filt Rate 23; Glucose Random 81 mg/dL (60-115); Potassium 4.4 mmol/L (3.3-5.1); Sodium 134 mmol/L (135-145)
== END 2021-04-27 11:14 | disposition home or self-care (01) ==
LOC: HO.LAB 11:13
PROVIDERS: Absent Provider Internal Medicine Advanced Heart Failure and Transplant Cardiology; PCP Family Medicine; Visit Provider Internal Medicine
DX: Z95.811 Presence of heart assist device (principal); Z79.01 Long term (current) use of anticoagulants
CPT/HCPCS: 36415; 80048; 85610

== ENCOUNTER 2021-04-30 09:53 | Outpatient (REF) | payer OTHER, SELFPAY ==
[2021-04-30 13:13] LABS: Anion Gap 16 (12-20); Blood Urea Nitrogen 93 mg/dL (9-16); Calcium 8.9 mg/dL (8.4-10.2); Carbon Dioxide 26 mmol/L (22-29); Chloride 96 mmol/L (96-108); Estimated Glomerular Filt Rate 24; Glucose Random 116 mg/dL (60-115); Potassium 4.2 mmol/L (3.3-5.1); Sodium 134 mmol/L (135-145)
== END 2021-04-30 09:54 | disposition home or self-care (01) ==
LOC: HO.HMGCLDS 09:53
PROVIDERS: PCP Family Medicine; Visit Provider Internal Medicine Advanced Heart Failure and Transplant Cardiology
DX: I50.22 Chronic systolic (congestive) heart failure (principal); Z95.811 Presence of heart assist device
CPT/HCPCS: 36415; 80048

== ENCOUNTER 2021-05-11 10:50 | Outpatient (REF) | payer OTHER, SELFPAY ==
[2021-05-11 14:04] LABS: Imm Gran Abs Auto 0.02 X10*3/uL (0.00-0.03); Imm Gran Pct Auto 0.3 % (0.0-0.4)
[2021-05-11 14:06] LABS: Basophils Percent Auto 0.6 % (0-2); Eosinophils Absolute Auto 0.4 X10*3/uL (0.0-0.4); Eosinophils Percent Auto 5.5 % (0-4); Hematocrit 34.5 % (42-52); Hemoglobin 10.3 g/dl (14.0-18.0); Lymphocytes Percent Auto 15.6 % (20-40); Mean Corpuscular HGB Conc 29.9 g/dl (31.0-36.0); Mean Corpuscular Hemoglobin 22.5 pg (27.0-33.0); Mean Corpuscular Volume 75.5 fL (80-98); Monocytes Absolute Auto 0.8 X10*3/uL (0.1-1.2); Monocytes Percent Auto 12.5 % (2-11); Neutrophils Absolute Auto 4.3 X10*3/uL (2.0-8.3); Neutrophils Percent Auto 65.5 % (45-73); Platelet Count 197 X10*3/uL (160-400); Red Blood Count 4.57 X10*6/uL (4.60-5.80); Red Cell Distribution Width 22.2 % (11.0-16.0); White Blood Count 6.5 X10*3/uL (4.8-10.8)
[2021-05-11 14:15] LABS: MANUAL DIFF FLAG NO
[2021-05-11 14:16] LABS: INTERNATIONAL NORM RATIO 1.9 (0.9-1.1); Prothrombin Time 21.6 SEC (9.9-13.0)
[2021-05-11 14:31] LABS: B Type Natriuretic Peptide 1005 pg/mL (<100)
[2021-05-11 14:36] LABS: Alanine Aminotransferase 20 U/L (0-40); Albumin Level 3.9 g/dL (3.5-5.0); Alkaline Phosphatase 128 U/L (39-117); Anion Gap 17 (12-20); Aspartate Amino Transferase 49 U/L (5-37); Bilirubin Total 1.2 mg/dL (0.0-1.0); Calcium 9.2 mg/dL (8.4-10.2); Carbon Dioxide 25 mmol/L (22-29); Chloride 99 mmol/L (96-108); Estimated Glomerular Filt Rate 22; Glucose Random 115 mg/dL (60-115); Sodium 136 mmol/L (135-145)
[2021-05-11 14:41] LABS: Lactate Dehydrogenase 208 U/L (118-273)
[2021-05-11 14:52] LABS: Blood Urea Nitrogen 84 mg/dL (9-16)
== END 2021-05-11 10:51 | disposition home or self-care (01) ==
LOC: HO.HMGCLR 10:50
PROVIDERS: PCP Family Medicine; Referring Provider Internal Medicine; Visit Provider Internal Medicine Advanced Heart Failure and Transplant Cardiology
DX: I50.9 Heart failure, unspecified (principal); Z95.811 Presence of heart assist device; Z79.01 Long term (current) use of anticoagulants
CPT/HCPCS: 36415; 80053; 83615; 83880; 85025; 85610